=== PATIENT | female | born 1990 | race Asian ===

== ENCOUNTER 2017-06-27 10:44 | Inpatient (IN) | payer SELFPAY ==
[~2017-06-27] VITALS: Ht 160 cm; Wt 70.8 kg
[2017-06-27 11:13] LABS: BASOPHILS % (AUTO) 0.7 % (0.0-2.0); EOSINOPHILS % (AUTO) 0.4 % (1.0-6.0); HEMATOCRIT 44.4 % (36-46); HEMOGLOBIN 15.2 g/dL (12.0-16.0); LYMPHOCYTES # (AUTO) 1.4 K/uL (1.0-4.8); LYMPHOCYTES % (AUTO) 10.4 % (22.0-44.0); MEAN CORPUSCULAR HEMOGLOBIN 29.4 pg (26.0-34.0); MEAN CORPUSCULAR HGB CONC 34.1 G/dL (31.0-37.0); MEAN CORPUSCULAR VOLUME 86 fL (80-100); MONOCYTES # (AUTO) 0.4 K/uL (0.1-1.0); MONOCYTES % (AUTO) 2.9 % (2.0-9.0); NEUTROPHILS # (AUTO) 11.7 K/uL (1.8-7.7); NEUTROPHILS % (AUTO) 85.6 % (40.0-70.0); PLATELET COUNT (AUTO) 320 K/uL (150-450); RED BLOOD CELL COUNT(AUTO) 5.15 MIL/uL (4.00-5.20); RED CELL DISTRIBUTION WIDTH 12.6 % (11.5-14.5)
[2017-06-27] MEDS ORDERED: LIDOCAINE HCL 1% 10 ML VIAL INJ ONE (11:15)
[2017-06-27] MEDS ORDERED: PERTUSS(ACELL),DIPH,TET VAC/PF 0.5 ML VIAL IM ONE (11:15)
[2017-06-27 11:22] LABS: ANION GAP 8 mmol/L (8-16); CALCIUM, TOTAL 9.3 mg/dL (8.8-10.5); CARBON DIOXIDE 28 mmol/L (22-29); CHLORIDE 101 mmol/L (98-107); CREATININE 0.82 mg/dL (0.60-1.30); GLOMERULAR FILTR. RATE CALC > 60 mL/min (>60); GLUCOSE,RANDOM 124 mg/dL (70-110); POTASSIUM 3.7 mmol/L (3.5-5.1); SODIUM SERUM 137 mmol/L (136-145); UREA NITROGEN, BLOOD 18 mg/dL (7-18)
[2017-06-27 11:27] LABS: ALANINE AMINOTRANSFERASE 23 U/L (12-78); ALBUMIN 4.2 g/dL (3.4-5.0); ALKALINE PHOSPHATASE 75 U/L (46-116); ASPARTATE AMINOTRANSFERASE 16 U/L (15-37); BILIRUBIN,TOTAL 0.3 mg/dL (0.1-1.0); TOTAL PROTEIN, SERUM 8.9 g/dL (6.4-8.2)
[2017-06-27] MEDS ORDERED: BACITRACIN 0.9 GM PACKET OINTMENT TP ONE (12:00)
[2017-06-27] MEDS ORDERED: HALOPERIDOL 5 MG TABLET PO PRN (14:45)
[2017-06-27] MEDS ORDERED: LORazepam 2 MG TABLET PO PRN (14:45)
[2017-06-27] MEDS: FLUoxetine HCL 20 MG CAPSULE PO SCH (15:28)
[2017-06-27 17:17] VITALS: BP 143/92
[2017-06-27] MEDS ORDERED: ACETAMINOPHEN 325 MG TABLET PO PRN (19:15)
[2017-06-27] MEDS ORDERED: BACITRACIN 28.4 GM OINTMENT TP PRN (19:15)
[2017-06-27] MEDS ORDERED: LOPERAMIDE HCL 2 MG CAPSULE PO PRN (19:15)
[2017-06-27] MEDS ORDERED: MAG HYDROX/AL HYDROX/SIMETH ES 30 ML SUSPENSION UDCUP PO PRN (19:15)
[2017-06-27] MEDS ORDERED: CloNIDine HCL 0.1 MG TABLET PO PRN (19:15)
[2017-06-27] MEDS ORDERED: BENZOCAINE/MENTHOL LOZENGE MM PRN (19:15)
[2017-06-27] MEDS ORDERED: PETROLATUM,WHITE 71 GM JELLY TP PRN (19:15)
[2017-06-27] MEDS ORDERED: ONDANSETRON HCL 4 MG TABLET PO PRN (19:15)
[2017-06-27] MEDS ORDERED: MAGNESIUM HYDROXIDE SUSPENSION 30 ML UDCUP PO PRN (19:15)
[2017-06-27] MEDS ORDERED: ALBUTEROL SULFATE HFA 90 MCG/PUFF 8 GM INHALER IH PRN (19:15)
[2017-06-27 20:30] VITALS: BP 139/88
[2017-06-27] MEDS: IBUPROFEN 600 MG TABLET PO PRN (20:30)
[2017-06-27 21:30] VITALS: BP 130/84
[2017-06-28 07:17] LABS: CHOL/HDL RATIO 4.1 (3.9-5.7)
[2017-06-28] MEDS ORDERED: DOCUSATE SODIUM 100 MG CAPSULE PO SCH (09:00)
[2017-06-28] MEDS ORDERED: OMEPRAZOLE 20 MG CAPSULE PO SCH (09:00)
[2017-06-28 09:10] VITALS: BP 135/87
[2017-06-28] MEDS: FLUoxetine HCL 20 MG CAPSULE PO SCH (09:52)
[2017-06-28 10:10] LABS: AMPHET/METH SCREEN,URINE NEGATIVE (NEGATIVE); BARBITURATE SCREEN, URINE NEGATIVE (NEGATIVE); BENZODIAZEPINES SCREEN,URINE NEGATIVE (NEGATIVE); CANNABINOID SCREEN,URINE POSITIVE (NEGATIVE); COCAINE SCREEN,URINE NEGATIVE (NEGATIVE); METHADONE SCREEN, URINE NEGATIVE (NEGATIVE); OPIATE SCREEN,URINE NEGATIVE (NEGATIVE); PHENCYCLIDINE SCREEN,URINE NEGATIVE (NEGATIVE)
[2017-06-28 17:00] VITALS: BP 128/77
[2017-06-28] MEDS: ZOLPIDEM TARTRATE 10 MG TABLET PO PRN (20:53)
[2017-06-29] MEDS: FLUoxetine HCL 20 MG CAPSULE PO SCH (08:06)
[2017-06-29 09:30] VITALS: BP 132/89
[2017-06-29] MEDS: IBUPROFEN 600 MG TABLET PO PRN (11:00)
[2017-06-29] MEDS: ARIPiprazole 15 MG TABLET PO SCH (12:08)
[2017-06-29 16:00] VITALS: BP 124/82
[2017-06-30 00:15] VITALS: BP 140/90
[2017-06-30] MEDS: ZOLPIDEM TARTRATE 10 MG TABLET PO PRN (00:22)
[2017-06-30 06:30] LABS: BAND NEUTROPHILS % (MANUAL) 0 % (0-5)
[2017-06-30 06:38] LABS: HEMATOCRIT 41.9 % (36-46); HEMOGLOBIN 14.6 g/dL (12.0-16.0); MEAN CORPUSCULAR HEMOGLOBIN 29.6 pg (26.0-34.0); MEAN CORPUSCULAR HGB CONC 34.7 G/dL (31.0-37.0); MEAN CORPUSCULAR VOLUME 85 fL (80-100); PLATELET COUNT (AUTO) 279 K/uL (150-450); RED BLOOD CELL COUNT(AUTO) 4.93 MIL/uL (4.00-5.20); RED CELL DISTRIBUTION WIDTH 12.4 % (11.5-14.5)
[2017-06-30 07:04] LABS: ANION GAP 9 mmol/L (8-16); CALCIUM, TOTAL 9.1 mg/dL (8.8-10.5); CARBON DIOXIDE 27 mmol/L (22-29); CHLORIDE 103 mmol/L (98-107); CREATININE 0.89 mg/dL (0.60-1.30); GLOMERULAR FILTR. RATE CALC > 60 mL/min (>60); GLUCOSE,RANDOM 106 mg/dL (70-110); POTASSIUM 3.9 mmol/L (3.5-5.1); SODIUM SERUM 139 mmol/L (136-145); UREA NITROGEN, BLOOD 20 mg/dL (7-18)
[2017-06-30 08:18] LABS: EOSINOPHILS % (MANUAL) 1 % (1-6); LYMPHOCYTES % (MANUAL) 36 % (22-44); MONOCYTES % (MANUAL) 8 % (2-9); SEGMENTED NEUTROPHILS % 55 % (40-70)
[2017-06-30 08:31] VITALS: BP 132/84
[2017-06-30] MEDS: FLUoxetine HCL 20 MG CAPSULE PO SCH (08:37)
[2017-06-30] MEDS: ARIPiprazole 15 MG TABLET PO SCH (08:37)
[2017-06-30 16:00] VITALS: BP 137/86
[2017-07-01] MEDS: ARIPiprazole 15 MG TABLET PO SCH (08:23)
[2017-07-01] MEDS: FLUoxetine HCL 20 MG CAPSULE PO SCH (08:24)
[2017-07-01 09:20] VITALS: BP 140/80
[2017-07-01] MEDS: IBUPROFEN 600 MG TABLET PO PRN (09:20)
[2017-07-01 10:31] VITALS: BP 131/92
[2017-07-01 16:58] VITALS: BP 146/87
[2017-07-02 01:00] VITALS: BP 112/67
[2017-07-02 08:55] VITALS: BP 156/100
[2017-07-02] MEDS ORDERED: CHOLECALCIFEROL (VIT D3) 1,000 UNITS TABLET PO SCH (09:00)
[2017-07-02] MEDS ORDERED: ARIP15TA2 PO (09:26)
[2017-07-02] MEDS ORDERED: FLUO-191 PO (09:27)
[2017-07-02] MEDS ORDERED: VITAD1000 PO (09:29)
[2017-07-02] MEDS: FLUoxetine HCL 20 MG CAPSULE PO SCH (09:50)
[2017-07-02] MEDS: ARIPiprazole 15 MG TABLET PO SCH (09:50)
== END 2017-07-02 13:15 | disposition home or self-care (01) | DRG 885 ==
LOC: EMS 10:46 → EEVIPCON 10:46 → 3EI 16:14
PROVIDERS: ADMIT Psychiatry & Neurology Psychiatry; ATTEND Psychiatry & Neurology Psychiatry
PROC: 0HQEXZZ Repair Left Lower Arm Skin, External Approach (ICD-10-PCS; principal; 2017-06-27)
PROC: 3E0234Z Introduction of Serum, Toxoid and Vaccine into Muscle, Percutaneous Approach (ICD-10-PCS; 2017-06-27)
DX: F33.2 Major depressive disorder, recurrent severe without psychotic features (principal); R45.851 Suicidal ideations; F12.90 Cannabis use, unspecified, uncomplicated; D72.829 Elevated white blood cell count, unspecified; S51.812A Laceration without foreign body of left forearm, initial encounter; F41.9 Anxiety disorder, unspecified; R03.0 Elevated blood-pressure reading, without diagnosis of hypertension; G47.00 Insomnia, unspecified; X78.8XXA Intentional self-harm by other sharp object, initial encounter; Z71.51 Drug abuse counseling and surveillance of drug abuser; Y93.89 Activity, other specified; Y92.89 Other specified places as the place of occurrence of the external cause; Y99.8 Other external cause status; Z23 Encounter for immunization
CPT/HCPCS: 12004; 82306; 83735; 84100; 85007; 90471; 90715; 99285; G0480; J3490

== ENCOUNTER 2017-07-04 11:32 | Emergency (ER) | payer MEDICAID ==
[~2017-07-04] VITALS: Ht 160 cm; Wt 70.5 kg
[~2017-07-04 11:32] MED LIST: ARIP15TA2 PO; FLUO-191 PO; VITAD1000 PO
[2017-07-04 11:49] VITALS: BP 149/94
== END 2017-07-04 12:32 | disposition home or self-care (01) ==
LOC: EMS 11:34
DX: Z48.02 Encounter for removal of sutures (principal)
CPT/HCPCS: 99281